=== PATIENT | female | born 1955 | race Caucasian/White ===

== ENCOUNTER 2021-11-18 10:43 | Emergency (ER) | payer MEDICARE, OTHER ==
--- NOTE | 2021-11-18 11:13 | ED Physician Documentation ---
History of Present Illness - Stated complaint Stated Complaint: LT LEG PX - Chief complaint Chief Complaint: General - History obtained from History obtained from: Patient - Additonal information Additional information: 66-year-old woman with history of ALS diagnosed in 2018, sees a neurologist at [facility] for this and is on riluzole for this. She has had some mild elevation in her liver enzymes because of that, she also has history of DVTs or some sort of blood clots associated with . She had back from [place] a few weeks ago. She lives in [place] though. She does note worsening muscle tone and weakness over the last few months but today presents for burning pain of a few days duration mostly in the left ankle but also some lateral hip pain. She has had sciatica in the past and this is different. She also had 2 hours of what she thinks was indigestion early this morning that was better if she laid on her left side. No shortness of breath. Review of Systems Ten Systems: 10 systems reviewed and negative Constitutional: denies: Fever, Chills Eyes: reports: Reviewed and negative Ears: reports: Reviewed and negative Nose: reports: Reviewed and negative PD PAST MEDICAL HISTORY - Present Medications Home Medications: Ambulatory Orders Medication Instructions Recorded Confirmed Riluzole [Rilutek] 50 mg PO BID 11/18/21 11/18/21 - Allergies Allergies/Adverse Reactions: Allergies Allergy/AdvReac Type Severity Reaction Status Date / Time Sulfa (Sulfonamide Allergy Hives Verified 11/18/21 10:51 Antibiotics) PD ED PE NORMAL - Vitals Vital signs reviewed: Yes - General General: Alert and oriented X 3, Other (She is thin and tanned in no distress.) - HEENT HEENT: PERRL, EOMI - Neck Neck: Supple, no meningeal sign, No bony TTP - Cardiac Cardiac: RRR, No murmur - Respiratory Respiratory: No respiratory distress, Clear bilaterally - Abdomen Abdomen: Normal bowel sounds, Soft, Non tender - Extremities Extremities: Other (There is a small effusion of the right ankle with tenderness but no warmth or severe pain with passive motion.) - Neuro Neuro: Alert and oriented X 3, Other (Difficulty especially with arm proximal musculature from her ALS) Eye Opening: Spontaneous Motor: Obeys Commands Verbal: Oriented GCS Score: 15 - Psych Psych: Normal mood, Normal affect Results - Vitals Vitals: Vital Signs - 24 hr 11/18/21 11/18/21 10:47 11:30 Temperature 36.4 C L Heart Rate 78 72 Respiratory 16 19 Rate Blood Pressure 164/88 H 124/83 H O2 Saturation 96 97 Oxygen O2 Source Room air - EKG (time done) 1104 Rate: Rate (enter#) (76) Rhythm: NSR [place]: Normal Intervals: Normal AL QRS: Normal Ischemia: Normal ST segments - Labs Labs: Laboratory Tests 11/18/21 11/18/21 11/18/21 11:05 11:05 11:05 WBC 5.6 RBC 4.60 Hgb 14.3 Hct 44.2 MCV 96.1 MCH 31.1 H MCHC 32.4 RDW 14.0 Plt Count 298 MPV 10.0 Neut # (Auto) 3.2 Lymph # (Auto) 1.8 [place] # (Auto) 0.4 Eos # (Auto) 0.2 Baso # (Auto) 0.1 Absolute Nucleated RBC 0.00 Nucleated RBC % 0.0 Sodium 138 Potassium 4.0 Chloride 101 Carbon Dioxide 29 Anion Gap 8.0 BUN 14 Creatinine 0.5 Estimated GFR (MDRD) 123 Glucose 72 Calcium 10.0 Total Bilirubin 1.7 H AST 30 ALT 33 Alkaline Phosphatase 55 Troponin I High Sens 3.5 Total Protein 7.3 Albumin 4.6 Globulin 2.7 Albumin/Globulin Ratio 1.7 Lipase 44 - Rads (name of study) X-ray 3 views of the right ankle is unremarkable Radiology: EMP read contemporaneously Single view chest x-ray is normal Radiology: EMP read contemporaneously PD MEDICAL DECISION MAKING - ED course ED course: 66-year-old woman with ALS presents with left ankle pain and some swelling there. Also a brief episode of atypical chest pain this morning. Cardiac work- up was negative. Doppler ultrasound of the leg negative for DVT. It looks like as functional declines happen with ALS joint pain may be related and I suspect this is the cause, recommended she take an NSAID and return for new or worsening symptoms. Departure - Departure Disposition: 01 Home, Self Care Clinical Impression: ALS (amyotrophic lateral sclerosis), Left leg pain Left ankle pain Qualifiers: Chronicity: acute Qualified Code(s): M25.572 - Pain in left ankle and joints of left foot Chest pain Qualifiers: Chest pain type: unspecified Qualified Code(s): R07.9 - Chest pain, unspecified Condition: Good Record reviewed to determine appropriate education?: Yes Instructions: ED Chest Pain Atypical Unkn Cause, ED Degenerative Joint Disease Comments: As discussed, I recommend Aleve, 250 mg every 6-12 hours as needed for the pain and swelling. Follow-up with your primary care physician. Return for new or worsening symptoms.
[2021-11-18 11:24] LABS: BASOPHILS # (AUTO) 0.1 10^3/uL (0.0-0.1); BASOPHILS % (AUTO) 1.4 %; EOSINOPHILS # (AUTO) 0.2 10^3/uL (0.0-0.7); EOSINOPHILS % (AUTO) 3.2 %; HCT - HEMATOCRIT 44.2 % (37.0-47.0); HGB - HEMOGLOBIN 14.3 g/dL (12.0-16.0); LYMPHOCYTES # (AUTO) 1.8 10^3/uL (1.5-3.5); LYMPHOCYTES % (AUTO) 31.3 %; MEAN CORPUSCULAR HEMOGLOBIN 31.1 pg (27.0-31.0); MEAN CORPUSCULAR HGB CONC 32.4 g/dL (32.0-36.0); MEAN CORPUSCULAR VOLUME 96.1 fL (81.0-99.0); MONOCYTES # (AUTO) 0.4 10^3/uL (0.0-1.0); MONOCYTES % (AUTO) 6.9 %; NEUTROPHILS # (AUTO) 3.2 10^3/uL (1.5-6.6); NEUTROPHILS % (AUTO) 56.8 %; PLT - PLATELET COUNT 298 10^3/uL (130-450); WHITE BLOOD COUNT 5.6 x10^3/uL (4.8-10.8)
--- NOTE | 2021-11-18 11:32 | XRAY Report ---
PROCEDURE: Chest 1 View X-Ray INDICATIONS: Chest Pain TECHNIQUE: One view of the chest was acquired. COMPARISON: None. FINDINGS: SUPPORT DEVICES: None. LUNGS/PLEURA: No focal consolidation, pleural effusion or space-occupying pneumothorax. MEDIASTINUM: The cardiomediastinal silhouette is within normal limits. BONES/SOFT TISSUES: No acute abnormality. Right clavicle hardware is seen. IMPRESSION: 1.No acute cardiopulmonary abnormality. Reviewed by: Nicolás Mak MD on 11/18/2021 11:31 AM [facility] Approved by: Nicolás Mak MD on 11/18/2021 11:31 AM [facility] Station ID: [id number]
--- NOTE | 2021-11-18 11:33 | XRAY Report ---
PROCEDURE: Ankle 3 View LT INDICATIONS: leg/ankle pain TECHNIQUE: 3 views of the ankle were acquired. COMPARISON: None. FINDINGS: BONES: Diffuse osteopenia. No acute, displaced fracture or dislocation. The ankle mortise is maintai stephanie on these nonstressed views. SOFT TISSUES: No focal abnormality. IMPRESSION: 1.No acute osseous abnormality. Reviewed by: Nicolás Mak MD on 11/18/2021 11:32 AM [facility] Approved by: Nicolás Mak MD on 11/18/2021 11:32 AM [facility] Station ID: [id number]
[2021-11-18 11:49] LABS: ALBUMIN 4.6 g/dL (3.2-5.5); ALBUMIN/GLOBULIN RATIO 1.7 (1.0-2.2); BILIRUBIN,TOTAL 1.7 mg/dL (0.2-1.0); CREATININE 0.5 mg/dL (0.4-1.0); TOTAL PROTEIN 7.3 g/dL (6.7-8.2)
[2021-11-18 12:38] VITALS: BP 126/81
--- NOTE | 2021-11-18 14:10 | Ultrasound Report ---
PROCEDURE: Duplex Ext Veins Left INDICATIONS: leg/ankle pain TECHNIQUE: Real-time imaging, as well as color and pulse Doppler interrogation, were performed of the lower extr emity deep veins from the inguinal ligament to the popliteal fossa. COMPARISON: None. FINDINGS: The deep veins are normally compressible, and free of intraluminal thrombus. Color and pu lse Doppler demonstrate normal phasic intraluminal flow. There is normal augmentation response to di stal compression maneuver. IMPRESSION: No evidence of DVT. Reviewed by: Nicolás Mak MD on 11/18/2021 2:09 PM PST Approved by: Nicolás Mak MD on 11/18/2021 2:09 PM PST Station ID: [id number]
== END 2021-11-18 12:36 | disposition home or self-care (01) ==
LOC: ED 10:43
DX: G12.21 Amyotrophic lateral sclerosis (principal); M25.572 Pain in left ankle and joints of left foot; R07.9 Chest pain, unspecified
CPT/HCPCS: 36415; 80053; 83690; 84484; 85025; 93005; 99284

== ENCOUNTER 2023-08-21 14:35 | Emergency (ER) | payer MEDICARE, OTHER ==
[2023-08-21 14:53] VITALS: BP 147/87; O2SAT 97
--- NOTE | 2023-08-21 15:20 | XRAY Report ---
PROCEDURE: Knee 4 View LT INDICATIONS: Trauma TECHNIQUE: 4 views of the knee(s) were acquired. COMPARISON: None. FINDINGS: Bones: No fractures or dislocations. No suspicious bony lesions. Mild underlying degenerative villalobos es are seen. Soft tissues: There is a small knee joint effusion. No suspicious soft tissue calcifications or mass es. IMPRESSION: Small joint effusion, without an acute bony abnormality seen. If it would be helpful for clinical management decision making, please consider a dedicated, schedule d knee MRI for further evaluation (assuming that there is no contraindication). Reviewed by: Jerrod Harding MD on 08/21/2023 2:19 PM [facility] Approved by: Jerrod Harding MD on 08/21/2023 2:19 PM [facility] Station ID: [id number]
--- NOTE | 2023-08-21 15:45 | ED Physician Documentation ---
History of Present Illness - Stated complaint Stated Complaint: GLF,SOA,LT KNEE PX - Chief complaint Chief Complaint: Trauma Ext - History obtained from History obtained from: Patient, Family - History of Present Illness Timing: How many weeks ago (1) Pain level max: 5 Pain level now: 2 - Additonal information Additional information: Patient is a 68-year-old female who states that 1 week ago she fell landing on her left knee. She states she has had continued swelling since that time. Pain is worse with walking, better with rest. No erythema. Has been using Motrin and Tylenol at home for pain which have been helping. She uses a walker to help her ambulate, she does have ALS. She states that she has had some very minimal shortness of breath over the past few days. No cough. No congestion. No fevers. No chills. No chest pain. She states currently she does not feel short of breath. 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 - Present Medications Home Medications: Ambulatory Orders Medication Instructions Recorded Confirmed Riluzole [Rilutek] 50 mg PO BID 11/18/21 11/18/21 - Allergies Allergies/Adverse Reactions: Allergies Allergy/AdvReac Type Severity Reaction Status Date / Time Sulfa (Sulfonamide Allergy Hives Verified 08/21/23 14:49 Antibiotics) - Social History Does the pt smoke?: No Smoking Status: Never smoker Does the pt drink ETOH?: No Does the pt have substance abuse?: No - Immunizations Immunizations are current?: Yes PD ED PE NORMAL - Vitals Vital signs reviewed: Yes - General General: Alert and oriented X 3, No acute distress - HEENT HEENT: Moist mucous membranes - Neck Neck: Supple, no meningeal sign - Cardiac Cardiac: RRR, Strong equal pulses - Respiratory Respiratory: No respiratory distress, Clear bilaterally - Derm Derm: Warm and dry - Extremities Extremities: No edema, No calf tenderness / cord, Other (L knee - Small joint effusion. MCL, ACL, PCL, LCL are intact. There is mild laxity of the LCL. No tenderness along the joint line. No bony tenderness. Full range of motion. No skin changes. Neurovascular intact) - Neuro Neuro: Alert and oriented X 3 - Psych Psych: Normal mood, Normal affect Results - Vitals Vitals: Vital Signs - 24 hr 08/21/23 14:44 Temperature 36.9 C Heart Rate 77 Respiratory 18 Rate Blood Pressure 147/87 H O2 Saturation 97 Oxygen O2 Source Room air - Rads (name of study) Left knee x-ray Relevant Findings:: Final report received, See rad report PD Medical Decision Making - ED course Complexity details: reviewed results, re-evaluated patient, considered differential, d/w patient, d/w family ED course: Patient with a small joint effusion after a fall. No patellar tenderness. No bony tenderness. Full range of motion. Recommend compression, ice, elevation and NSAIDs. No evidence of ACL, MCL, PCL, LCL tear. There is some laxity of the LCL. Possible meniscus injury? We will have her follow-up with orthopedics for further care. Patient has had some very minimal dyspnea over the past few days, lungs are clear to auscultation here. O2 sat is normal. No fevers. No cough. No evidence of PE. No indication for x-ray at this time. Will continue to monitor and if she worsens, would consider further workup at that time. Patient counseled regarding signs and symptoms for which I believe and urgent re-evaluation would be necessary. Patient with good understanding of and agreement to plan and is comfortable going home at this time This document was made in part using voice recognition software. While efforts are made to proofread this document, sound alike and grammatical errors may occur. Departure - Departure Disposition: 01 Home, Self Care Clinical Impression: Knee effusion, left Condition: Good Instructions: ED Effusion Knee Follow-Up: Orthopedic Care [Provider Group] - Within 1 week Comments: Your x-ray does not show any acute fractures. You do have a small joint effusion as we discussed. I would start by compressing the area with a neoprene sleeve, these can be obtained at stores such as [facility] or [facility]. You should also ice the area after any activity, elevate the area as well. You can use Motrin or Tylenol as needed for pain. If you are still having pain in 1 week, I would have you follow-up with orthopedics for repeat evaluation. Forms: PCP List Discharge Date/Time: 08/21/23 16:05
== END 2023-08-21 16:05 | disposition home or self-care (01) ==
LOC: ED 14:35
DX: M25.462 Effusion, left knee (principal)
CPT/HCPCS: 99283

== ENCOUNTER 2023-12-26 16:06 | Outpatient (CLI) | payer MEDICARE, OTHER ==
--- NOTE | 2023-12-27 09:30 | Ultrasound Report ---
PROCEDURE: Duplex Ext Veins Bilateral INDICATIONS: Swelling TECHNIQUE: Real-time imaging, as well as color and pulse Doppler interrogation, were performed of the deep veins of both legs from the inguinal ligament to the popliteal fossa. Attempted visualization of the calf veins was performed. COMPARISON: Venous duplex on November 18, 2021 FINDINGS: The deep veins are normally compressible, and free of intraluminal thrombus. Color and pu lse Doppler demonstrate normal phasic intravascular flow. There is normal augmentation response to d istal compression maneuver. IMPRESSION: No deep venous thrombosis of the visualized bilateral lower extremities. Reviewed by: Buzz Ferguson MD on 12/27/2023 9:29 AM PDT Approved by: Buzz Ferguson MD on 12/27/2023 9:29 AM PDT Station ID: [id number]
--- NOTE | 2023-12-27 09:32 | Ultrasound Report ---
PROCEDURE: Ankle Brachial Index INDICATIONS: COLD FEET TECHNIQUE: Ankle-brachial indices were obtained bilaterally and recorded. COMPARISONS: None. FINDINGS: Right brachial: 126 mmHg Right ankle: 141 mmHg Right ankle brachial index (BEBO): 1.1 Left brachial: ): 121mmHg Left ankle: ): 140mmHg Left ankle brachial index (BEBO): 1.1 There are biphasic waveforms in the bilateral posterior tibial and dorsalis pedis arteries. Healing potential: Ankle pressures >55 mm Hg in non-diabetics and >80 mm Hg in diabetics are likely to achieve primary h ealing of ischemic foot ulcers. Toe pressures >30 mm Hg are likely to achieve primary healing of ischemic foot ulcers, toe or transme tatarsal amputations. IMPRESSION: 1.Resting BEBO is normal on the right at 1.1 and normal on the left at 1.1. 2.Biphasic waveforms in the bilateral posterior tibial and dorsalis pedis arteries. Reviewed by: Buzz Ferguson MD on 12/27/2023 9:31 AM PDT Approved by: Buzz Ferguson MD on 12/27/2023 9:31 AM PDT Station ID: [id number]
== END 2023-12-26 16:07 | disposition home or self-care (01) ==
LOC: DI 16:06
PROVIDERS: ATTEND Family Medicine
DX: R68.89 Other general symptoms and signs (principal); M21.6X9 Other acquired deformities of unspecified foot
CPT/HCPCS: 93922; 93970

== ENCOUNTER 2024-01-21 15:12 | Outpatient (CLI) | payer MEDICARE, OTHER ==
[2024-01-21 18:51] LABS: HCT - HEMATOCRIT 45.3 % (37.0-47.0); HGB - HEMOGLOBIN 13.9 g/dL (12.0-16.0); MEAN CORPUSCULAR HEMOGLOBIN 30.1 pg (27.0-31.0); MEAN CORPUSCULAR HGB CONC 30.7 g/dL (32.0-36.0); MEAN CORPUSCULAR VOLUME 98.1 fL (81.0-99.0); RED BLOOD COUNT 4.62 10^6/uL (4.20-5.40); RED CELL DISTRIBUTION WIDTH 13.8 % (12.0-15.0)
[2024-01-21 19:03] LABS: CALCIUM 10.5 mg/dL (8.5-10.3); CREATININE 0.3 mg/dL (0.6-1.3); POTASSIUM 3.6 mmol/L (3.5-4.5)
== END 2024-01-21 15:13 | disposition home or self-care (01) ==
LOC: LAB.N 15:12
PROVIDERS: ATTEND Family Medicine
DX: G12.21 Amyotrophic lateral sclerosis (principal); R68.89 Other general symptoms and signs
CPT/HCPCS: 36415; 80048; 82306; 85027